=== PATIENT | male | born 1990 | race African-American/Black ===

== ENCOUNTER → 2022-12-10 13:02 | Outpatient (CLI) | payer OTHER, SELFPAY ==
--- NOTE | ~2022-12-10 | XR_ITS ---
EXAMINATION: XR chest 2V Exam Date/Time: 12/10/2022 13:18 CDT HISTORY: TOBACCO USE 1 PACK EVERY 3 DAYS 10 YR SMOKER Comparison: None. RESULT: Lines, tubes, and devices: None. Lungs and pleura: Clear. Cardiomediastinal silhouette: Normal. Other: No acute osseous or upper abdominal finding. IMPRESSION: No acute cardiopulmonary process. Reviewed, dictated and finalized at location K.
== END ==
PROVIDERS: PCP Emergency Medicine; Visit Provider Emergency Medicine
DX: Z72.0 Tobacco use (principal)
CPT/HCPCS: 71046